=== PATIENT | female | born 1940 | race Caucasian/White ===

== ENCOUNTER → 2020-06-11 09:32 | Outpatient (CLI) | payer MEDICARE, OTHER, SELFPAY ==
[2020-06-11 10:24] LABS: COVID19 -Nasal RAPID Negative (Negative)
== END ==
PROVIDERS: Visit Provider Surgery
DX: Z20.822 Contact with and (suspected) exposure to COVID-19 (principal)
CPT/HCPCS: 87635; C9803

== ENCOUNTER 2020-06-12 09:27 | Day surgery (SDC) | payer MEDICARE, OTHER, SELFPAY ==
[2020-06-12] VITALS (7 sets, daily range): BP systolic 98–150; BP diastolic 54–76; PULSE 60–79; RESP 9–22; TEMP 36.1–37; O2SAT 93–98; BMI 30.9
--- NOTE | 2020-06-12 09:58 | SUR.PREOP ---
Dr. Fallon aware of pt's output with some feces, output in BR clear yellow. Dr. Fallon ok with pt staying for 2 hours post op, eating lunch and then released upstairs to be with hospitalized .
--- NOTE | 2020-06-12 10:05 | PM.HP.1 ---
History of Present Illness History of Present Illness Date Patient Seen: 06/12/20 Time Patient Seen: 10:05 Chief complaint: SDC Narrative: This is an 80-year-old woman with history of colon polyps found on screening colonoscopy 5 years ago. She was recommended to have a repeat colonoscopy in 5 years. She denies any new symptoms of melena, hematochezia, unexplained abdominal pain, unexplained weight loss. She says she is otherwise well. She had a 20 lb intentional weight loss this year. ROS: Thirteen system review is otherwise negative other than as mentioned below and in HPI. PE: GENERAL: Well groomed and cooperative. Appears stated age. Answers questions promptly and appropriately. Vital signs noted. HENT: Normocephalic, atraumatic. Hearing intact. EYES: Conjunctiva pink, sclera white, no periorbital swelling. CARDIOVASCULAR: Regular rate. No pedal edema. RESPIRATORY: Non-tachypneic, breathing comfortably on room air. GASTROINTESTINAL: Abdomen soft and non-distended GENITALURINARY: No flank tenderness. MUSCULOSKELETAL: Equal tone and mass bilaterally. SKIN: Warm, dry, soft, appropriate color for ethnicity. No other lesions, rashes, or wounds. NEURO: Alert and Oriented X 3. No gross sensory deficits, or cognitive issues. PSYCH: Appropriate affect and mood. Meds Home Medications and Allergies Home Medications Medication Instructions Recorded Confirmed Type sodium,potassium,mag sulfates 17.5 177 ml PO DAILY #354 ml 06/04/20 Rx gram-3.13 gram-1.6 gram oral soln furosemide 20 mg PO DAILY 06/12/20 06/12/20 History latanoprost 1 drp EYE-BOTH DAILY 06/12/20 06/12/20 History Allergies Allergy/AdvReac Type Severity Reaction Status Date / Time adaptic dressing marterial AdvReac Intermediate Redness of Uncoded 06/12/20 10:36 Skin Assessment & Plan Assessment and plan (1) Personal history of colonic polyps: Status: Acute Assessment & Plan narrative: Risks and benefits of screening colonoscopy and possible polypectomy were discussed with the patient including risk of bleeding, perforation, need for additional procedures, risks of anesthesia. The patient desires to proceed with the colonoscopy procedure. COVID-19 COVID-19 status: Negative Result date/Date tested (Pos, Neg/Pending): 06/11/20 Time Spent With Patient Time with patient: 15-24 minutes Quality VTE Deep Vein Thrombosis/Pulmonary Embolism Present on Admission: No
[2020-06-12] MEDS: SODIUM CHLORIDE 0.9% 1,000 ML 200 ML IV (10:35)
--- NOTE | 2020-06-12 11:25 | PM.OP.ENDO ---
Operative Date/Time/Diagnoses Date of procedure: 06/12/20 Time of procedure: 11:25 Pre-op diagnosis: Personal history of colon polyps Post-op diagnosis: other (Extensive diverticulosis, no polyps seen on today's exam) Procedure & Clinicians Study performed: Colonoscopy Procedural sedation performed by the endoscopist Same procedure as scheduled: Yes Indications: Personal history of colon polyps Surgeon: Dimple Fallon Procedure Notes SCOAP/Timeout: Performed Procedure in detail: The patient was brought to the room and placed in left lateral decubitus position with all bony prominences padded. A time-out was performed and then the patient was given procedural sedation starting with 2 mg of Versed and 100 mcg of fentanyl. A total of 5 mg of Versed and 200 micro g of fentanyl were given for the entire procedure. Vitals were monitored throughout the procedure and remained stable. Once adequately sedated, the procedure was begun. A rectal exam was performed revealing no abnormalities. The colonoscope was then introduced to the rectum and advanced carefully through the rectum and sigmoid colon. The patient had extensive diverticulosis with many false passages and line turns. Multiple maneuvers were used to traverse the colon safely including using the stiffener, positioned the patient on her back, using anterior pressure on the abdominal wall. We were ultimately able to reach the cecum. Prep was poor, resulting in visibility adequate only to identify polyps greater than 5 mm. Polyp smaller than 5 mm could have easily been missed given the poor prep adherent stool to the arriola of the colon. The cecum was identified by the appendiceal orifice, the mucosal tri-fold, and the ileocecal valve. There was some fresh blood in the cecum, which appeared to be from a small mucosal tears which may be from prolonged insufflation of the colon. No full or partial-thickness tears were seen. The blood was washed off, and the cecum appeared hemostatic. The scope was then retracted while rotating side to side and examining each mucosal fold. There were extensive diverticula throughout the ascending, descending, and sigmoid colon. A few scattered diverticula were also seen in the transverse colon. At the conclusion of the procedure retroflexion was performed and small grade 1-2 internal hemorrhoids without stigmata of bleeding were seen. The scope was then withdrawn from the rectum the procedure was concluded. The patient tolerated the procedure well and was transferred to the PACU in stable condition. Scope withdrawal time: 7 Sedation minutes: 30 Findings: diverticulosis and other findings (Very tortuous colon, extensive diverticulosis, poor prep) Specimen(s): none sent Complications: none (No immediate complication) Impression: Due to the extensive diverticulosis and tortuous colon, this patient should be considered high risk for any future colonoscopy procedures. I would recommend that, if anything, she would have a CT colonography or barium enema in the future rather than a colonoscopy to rule out polyps. No polyps were found on today's exam, but the prep was not adequate to see anything smaller than 5 mm. Therefore, if she is healthy enough at that time, I would consider a CT colonography or barium enema in 5 years.
[2020-06-12] MEDS: fentaNYL 250 MCG/5 ML INJ IV (11:28)
[2020-06-12] MEDS: MIDAZOLAM 5 MG/5 ML VIAL IV (11:28)
--- NOTE | 2020-06-12 13:05 | SUR.PHASEII ---
Per instruction from Dr Fallon, pt is permitted to visit after procedure who is currently admitted to room 213. Dr Fallon requested for pt to have a light lunch prior to being D/C'd to visiting her . Pt will call her ride from husbands room for a ride home.
== END 2020-06-12 13:25 | disposition home or self-care (01) ==
PROVIDERS: PCP Physician Assistant Medical; Referring Provider Surgery; Visit Provider Surgery
PROC: 0DJD8ZZ Inspection of Lower Intestinal Tract, Via Natural or Artificial Opening Endoscopic (ICD-10-PCS; CPT 45378; principal; 2020-06-12 10:45)
DX: Z12.11 Encounter for screening for malignant neoplasm of colon (principal); Z86.010 Personal history of colon polyps; K57.30 Diverticulosis of large intestine without perforation or abscess without bleeding; K64.0 First degree hemorrhoids
CPT/HCPCS: G0105; 99152; 99153; J2250; J3010

== ENCOUNTER → 2021-06-16 11:32 | Outpatient (CLI) | payer MEDICARE, OTHER, SELFPAY ==
[2021-06-16 14:00] LABS: Add Manual Diff / Slide Review NO; Basophils Absolute Auto 0 /uL (0-100); Basophils Percent Auto 0.7 % (0-2); Eosinophils Absolute Auto 100 /uL (0-450); Eosinophils Percent Auto 1.4 % (2-4); Hematocrit 38.9 % (36-46); Hemoglobin 12.7 g/dL (12.0-16.0); Lymphocytes Absolute Auto 1700 /uL (1100-4500); Lymphocytes Percent Auto 26.2 % (25-40); Mean Corpuscular HGB Conc 32.8 % (30-36); Mean Corpuscular Hemoglobin 30.2 PG (26-34); Mean Corpuscular Volume 92.3 fL (80-100); Monocytes Absolute Auto 900 /uL (0-900); Monocytes Percent Auto 13.7 % (3-14); Neutrophils Absolute Auto 3700 /uL (1500-7000); Platelet Count 190 X10^3/uL (150-400); Red Blood Cell Count 4.21 X10^6/uL (4.0-5.2); Red Cell Distribution Width 14.8 % (11.6-14.8); White Blood Cell Count 6.5 X10^3/uL (4.5-11.0)
[2021-06-16 14:05] LABS: Hemoglobin A1C% w Est Avg Glu 5.3 % (4.0-6.0)
[2021-06-16 14:37] LABS: BUN Creatinine Ratio 19.7 (6-22); Blood Urea Nitrogen 15 mg/dL (7-17); Calcium 9.4 mg/dL (8.4-10.2); Carbon Dioxide 32 mmol/L (22-32); Chloride 104 mmol/L (98-107); Estimated Glomerular Filt Rate > 60.0 mL/min (>60); Glucose 90 mg/dL (80-110); HEMOLYSIS < 15 (0-50); Potassium 4.6 mmol/L (3.4-5.1); Sodium 141 mmol/L (137-145)
== END ==
PROVIDERS: PCP Physician Assistant Medical; Referring Provider Orthopaedic Surgery; Visit Provider Orthopaedic Surgery
DX: R73.9 Hyperglycemia, unspecified (principal); Z01.818 Encounter for other preprocedural examination; Z01.812 Encounter for preprocedural laboratory examination
CPT/HCPCS: 36415; 80048; 83036; 85025; 93005; 93010

== ENCOUNTER → 2021-07-13 09:53 | Outpatient (CLI) | payer MEDICARE, OTHER, SELFPAY ==
[2021-07-13 11:00] LABS: COVID19 -Nasal RAPID Negative (Negative)
== END ==
PROVIDERS: PCP Physician Assistant Medical; Visit Provider Family Medicine Sleep Medicine
DX: Z20.822 Contact with and (suspected) exposure to COVID-19 (principal)
CPT/HCPCS: 87635; C9803

== ENCOUNTER 2021-07-16 08:26 | Day surgery (SDC) | payer MEDICARE, OTHER, SELFPAY ==
[2021-07-07 13:59] VITALS: BMI 29.4
[2021-07-16] VITALS (13 sets, daily range): BP systolic 108–157; BP diastolic 34–71; PULSE 67–98; RESP 14–18; TEMP 36.6–37.1; O2SAT 16–100; BMI 29.4
[2021-07-16] MEDS: CELECOXIB 200 MG CAPSULE PO (08:58)
[2021-07-16] MEDS: ACETAMINOPHEN 325 MG TABLET 975 MG PO (08:58)
[2021-07-16] MEDS: PREGABALIN 75 MG CAPSULE PO (08:58)
[2021-07-16] MEDS: LACTATED RINGERS 1,000 ML 42 ML IV (09:10)
--- NOTE | 2021-07-16 09:42 | PM.PREOP ---
Pre-operative Note COVID-19 COVID-19 status: Negative Result date/Date tested (Pos, Neg/Pending): 07/13/21 Interval Note History & Physical reviewed/Exam performed by Physician: Yes Changes to H&P: No
--- NOTE | 2021-07-16 09:54 | P.OP_ITS ---
Operative Date/Time/Diagnoses Date of procedure: 07/16/21 Time of procedure: 11:50 Pre-op diagnosis: Right knee osteoarthritis Post-op diagnosis: same Procedure & Clinicians Procedure: Right total knee replacement Same procedure as scheduled: Yes Indications: The patient has had progressively worsening right knee pain with radiographic changes consistent with arthritis. Non-operative management has failed and the patient has requested total knee replacement. The risks, benefits and alternatives to surgery were discussed with the patient prior to proceeding. Risks discussed included, but were not limited to, failure to relieve pain, stiffness, infection, nerve damage, deep venous thrombosis, pulmonary embolism, stroke, coma, heart attack, permanent paralysis and , as well as the potential need for eventual revision of the prosthetic. Surgeon: Umang Elder Head Worker: Nidhi Cantu Click Yes if Unassisted: No Anesthesia Type: Spinal, Sedation and Local Operative Notes Findings: Severe tricompartmental osteoarthritis worst in the lateral compartment. Soft bone consistent with osteoporosis. Closure Type: primary Specimen(s): none sent Prosthetic devices, grafts, tissues, transplants, or devices: Implants used in this procedure were manufactured by the [employer] and [employer] and included the BCS II Journey total knee replacement with a size 4 right non porous tibial base plate, a size 5 right cobalt chromium femoral component, a 9 mm cross-linked tibial insert and a 32 mm oval Fouzia II patella. Applied: implant(s) Estimated Blood Loss (mL): 25 Blood products transfused: none Tourniquet time (min): 52 Procedure in detail: The patient was seen in the pre-operative area, where the patient identified the right knee as the operative site and this was marked with my initials. The patient received pre-operative antibiotics, and was taken to the operating room and placed on the operative table in the supine position. After satisfactory anesthesia, a multimedia technician out was performed. The right leg was encircled with a tourniquet about the proximal thigh, and the leg was prepared from the toes to the tourniquet with ChloroPrep in the usual fashion and draped through sterile drapes. The leg was elevated and exsanguinated with Eschmark bandage and the tourniquet inflated to 250 mmHg pressure. The knee was approached through an approximately 18 cm incision centered over the patella and carried into the knee through a medial parapatellar arthrotomy. The anterior osteophytes and soft tissues were removed. The rotational landmarks of [place]'s line and the transepicondylar axis were marked on the femur with electrocautery, and intramedullary guide holes for the femur and tibia were crea dennis. The distal femoral cut was made in 6 degrees of valgus using the intramedullary guide at the +2 cut setting due to a flexion contracture. The proximal tibial cut was then made using the intramedullary guide, taking 7mm of bone off the less involved medial side. The extension gap was checked and the rotation of the femoral component confirmed with the gap balancing system. The anterior, posterior and chamfer cuts were then made. The posterior osteophytes and soft tissues were then removed. The posterior capsule was injected with part of a mixture of 60 ml 0.25% Marcaine mixed with 20 ml Exparel and 4 mg of morphine for post-operative pain control. The remainder of this mixture was injected into the capsule and subcutaneous tissues during cement curing. The tibia was prepared with the rotation set by an extra medullary guide. Trial tibial and femoral components were then placed and the intercondylar notch cut through the femoral trial. Range of motion was 0-135 degrees, with good stability throughout the range. The patella was then cut to accommodate the patellar prosthetic. There was no need for a lateral release. The trials were then removed, and the femoral hole plugged with a bone plug. The bone was prepared with pulsatile lavage, and dried with a sponge. Cement was applied and the final prosthetics placed. Excess cement was removed during and after cement curing. After confirming there was no extruded cement posteriorly, the final tibial insert was placed. The knee was copiously irrigated and the tourniquet deflated. Hemostasis was obtained. The capsule was closed with interrupted # 2 polyester suture. The subcutaneous layer was closed with 3-0 Vicryl, and the skin with a running 3-0 V-Lock suture and Dermabond. An Aquacel Ag dressing was applied and the patient was taken to recovery having tolerated the procedure well. Post-operative Condition: stable Disposition: PACU Plan for aftercare: The patient will be maintained on a standard total knee replacement protocol with weight bearing as tolerated. The patient will receive aspirin and sequential compression devices for DVT prophylaxis. The patient will be discharged home when safe for the home environment.
--- NOTE | 2021-07-16 10:00 | DI.RAD.S_ITS ---
PROCEDURE: XR KNEE RT 1TO2V INDICATIONS: TOTAL KNEE TECHNIQUE: 2 view(s) of the knee acquired. [facility]PAR[facility], CR, XR KNEE 4+ VIEWS RIGHT, 05/04/2021, 16:26. FINDINGS: Bones: Patient is status post knee joint arthroplasty. Hardware components are in expected positions. Visualized bony structures are intact. Soft tissues: Overlying postoperative changes are noted. IMPRESSION: No significant abnormality. Dictated by: Jose Juan Tanner M.D. on 07/16/2021 at 12:56 Approved by: Jose Juan Tanner M.D. on 07/16/2021 at 12:57
[2021-07-16] MEDS: CEFAZOLIN 2 GM/20 ML SYRINGE IV (10:33)
[2021-07-16] MEDS: TRANEXAMIC ACID 1,000 MG VIAL 1000 MG INJ ×2 (10:36→11:45)
--- NOTE | 2021-07-16 10:49 | SUR.OPER ---
Supine on padded OR bed. Pillow under head, arms secured on padded armboards <90 degree abduction. Safety belt across torso. Non-operative leg secured with tape over blanket over lower leg. Operative leg secured in [place] positioner. Foam padded brace at thigh of operative leg.
[2021-07-16] MEDS: BUPIVACAINE 0.25% (PF) 60 ML, EPINEPHrine 0.3 MG INJ (10:59)
[2021-07-16] MEDS: MORPHINE 4 MG/ML INJ INJ (11:01)
[2021-07-16] MEDS: BUPIVACAINE LIPOSOME 266 MG/20 ML VIAL INJ (11:30)
--- NOTE | 2021-07-16 12:32 | SUR.PHASEI ---
Attempted to call report to Naima RN and nurse was at lunch and unable to take report. Will attempt again in 15 minutes. Pt denies any complaints and has already had her Xray and something to drink..
[2021-07-16] MEDS: LACTATED RINGERS 1,000 ML 100 ML IV (13:11)
[2021-07-16] MEDS: IBUPROFEN 400 MG TABLET PO ×3 (13:16→21:01)
--- NOTE | 2021-07-16 14:25 | PT.IIE ---
Current Diagnoses Unilateral primary osteoarthritis, right knee (07/16/21) Surgery Performed Operation Date: 07/16/21 10:00 Actual Procedures p Total Knee Arthroplasty(Right) - Umang Elder MD Medical History (Last Reviewed 07/16/21 @ 09:10 by Cosmo Muñoz RN) BCC (basal cell carcinoma) Edema Heart murmur Macular degeneration Peripheral neuropathy UTI (urinary tract infection) Physical Therapy Inpatient Evaluation/Re-Eval M1 PT/OT-IP Prior Functional Status Start: 07/16/21 15:08 Freq: NEEDED Status: Active Protocol: Document 07/16/21 14:25 AB (Rec: 07/16/21 15:18 AB [id number]) Medical Review Prior Functional Status Medical History Reviewed Yes Communication able to make needs known Mobility and Gait pt stated that she is modified independent with all mobilities and ambulation without AD but uses a SPC for long distance/outdoor ambulation Social History Household Members none Living Arrangements House Number of Floors (Floors) One Floor Number of Stairs To Enter/Railing? 1 step to enter Home Environment Standard Height Toilet,Walk in Shower Home Equipment Front Wheel Walker,Straight Cane,Raised Toilet Seat Without Armrests,Shower Seat with Backrest,Hand Held Shower ,Grab Bars In Shower Additional Social History Comment pt plans to go to her daughter 's house upon d/c and daughter will assist her: ~ 1 month and then pt will go back to her house and her son will assist her for 1month M2 PT-IP Current Condition Start: 07/16/21 15:08 Freq: NEEDED Status: Active Protocol: Document 07/16/21 14:25 AB (Rec: 07/16/21 15:18 AB [email or web address]) Physical Therapy Current Condition Current Condition Evaluation Date 07/16/21 Treatment Diagnosis s/p R TKA; difficulty in walking Onset Date 07/16/21 M3 PT-IP Subjective Start: 07/16/21 15:08 Freq: NEEDED Status: Active Protocol: Document 07/16/21 14:25 AB (Rec: 07/16/21 15:18 AB [id number]) Subjective Physical Therapy Visit Type Type Initial Evaluation Visit Start Time 14:25 Visit Stop Time 15:07 Total Visit Minutes 42 Number of PASTE MIXER Visits 0 Physical Therapy Visit Comments Patient Comments agreeable to do PT Therapy Pain Assessment Pain When Pain Assessed At Rest Pain Present Pain Present Pain Reported Location Right Knee Intensity 2 M4 PT-IP Mobility and Gait Start: 07/16/21 15:08 Freq: NEEDED Status: Active Protocol: Document 07/16/21 14:25 AB (Rec: 07/16/21 15:18 AB [email or web address]) PT-Bed Mobility Assessment Supine to Sit Supine to Sit Minimal Assistance Sit to Supine Sit to Supine Minimal Assistance PT-Transfer Assessment Sit to and From Stand Sit to and from Stand Minimal Assistance Equipment Transfer Assistive Device Gait Belt,Front Wheeled Walker Orthotic/Prosthetic Devices or Brace: No Transfers Transfer Destination Bedside Commode Transfer Technique Stand Step Pivot Transfer Ability Level of Assist Minimal Assistance,1 Person Assistance,Use of Upper Extremities Comments Mobility Comments BP: 134/54 pt completed supine to sit min A and cues for techniques. able to sit in bed SBA with cues for positioning. c/o lightheadness. BP: 137/56. stated that her buttocks are still numb and LE has ~ 80% sensation back but able to move BLE AROM. completed sit to stand min A and cues. able to take steps towards HOB. stated that she has to use the toilet. instructed to sit down. positioned bedside commode next to pt. completed sit to stand min A and pt completed step transfer using fWW min A. completed sit to stand from bedside commode min A and step transfer to EOB min A and side stepping to HOB min A. completed sit to supine min A and cues. positioned pt in bed. call light and table placed wtihin reach. Gait Assessment Gait Gait Assistance Required: Minimum Assistance,1 Person Assist Distance (Feet) 2 Able to Maintain Weight Bearing Status Yes During Gait Assistive Devices Assistive Device Gait Belt,Front Wheeled Walker Factors Limiting Gait Function Factors Limiting Gait Function Decreased Activity Tolerance, Decreased Sensation,Decreased Strength,Limited Range of Motion,Pain,Poor Balance,Poor Safety Awareness Comments Gait Comments steps towards HOB PT-Balance Assessment Sitting Balance and Reactions Static Sitting Balance Ability Good Dynamic Sitting Balance Ability Good Standing Balance and Reactions Static Standing Balance Ability Fair Dynamic Standing Balance Ability Fair Device Used FWW M5 PT-IP Objective Assessments Start: 07/16/21 15:08 Freq: NEEDED Status: Active Protocol: Document 07/16/21 14:25 AB (Rec: 07/16/21 15:18 AB [email or web address]) Orientation Orientation/Cognition Level of Alertness Alert Orientation Name,Situation Language Function Ability No Deficits Noted Safety Awareness Understands Safety Issues Memory Description No Deficits Noted Strength Lower Extremity Strength Assessment Right Impaired Hip 4-/5 Knee 3+/5 Coordination Assessment Gross Coordination Gross Coordination WNL Sensation Assessment Sensation Gross Sensation Right LE Impaired,Left LE Impaired Light Touch Impaired Proprioception (Position) Impaired Comments Sensation Comments pt has chronic peripheral neuropathy but also still c/o numbness from surgery Muscle Tone Muscle Tone WNL Yes M6 PT-IP Treatment Start: 07/16/21 15:08 Freq: NEEDED Status: Active Protocol: Document 07/16/21 14:25 AB (Rec: 07/16/21 15:18 AB [id number]) Physical Therapy Treatment Exercises Exercises Heel Slides Education Education Provided Precautions,Weight Bearing Status,Post-Op Packet,Safety M7 PT-IP Assessment and Plan Start: 07/16/21 15:08 Freq: NEEDED Status: Active Protocol: Document 07/16/21 14:25 AB (Rec: 07/16/21 15:18 AB [email or web address]) PT Summary Assessment and Plan Potential Rehabilitation Potential Good Status of Condition at Evaluation Evolving Summary Impairments Pain,ROM,Strength,Balance, Coordination,Sensation,Tone, Cognition,Bed Mobility, Transfers,Gait,Activity Tolerance Assessment Summary pt requiring min A with mobility using FWW. pt s/p R TKA and just had surgery this morning and will likely progress during hospital stay. pt plans to go home and daughter will assist. will conduct caregiver training when appropriate as well as stair climbing training. Goals Bed Mobility Goal Independent Transfer Goal Independent,Front Wheeled Walker Gait Goal Independent,Front Wheel Walker Gait Distance 200 Other Goals up/down 1 steps using FWW SBA Days to Meet Goals 5 Frequency of Treatment Frequency Of Treatment Twice a Day Treatment Plan Physical Therapy Treatment Plan Bed Mobility Training,Transfer Training,Gait Training, Therapeutic Exercise,Balance Retraining,Post Op Education, Discharge Planning,Hot or Cold Pack,Neuromuscular Re-ed, Coordination Retraining,Manual Therapy Weight Bearing Status Weight Bearing Status Weight Bear as Tolerated Allowed Weight Bearing Amount (enter % RLE WBAT or #) (%) Recommendations To Nursing Amount of Assist Needed 1 Person Assist Discharge Recommendations PT Discharge Recommendations Home with Assistance, Outpatient PT Transportation Needs at Discharge Private Vehicle
[2021-07-16] MEDS: ACETAMINOPHEN 325 MG TABLET 650 MG PO ×2 (15:20→21:01)
--- NOTE | 2021-07-16 15:30 | PC.NURSE ---
pt worked with PT, she is min assist to bsc, pt still have some numbness. pt voided 300cc. call light in reach. bed alarm active. PP++, CMS+
[2021-07-16] MEDS: ASPIRIN EC 81 MG TABLET PO (21:02)
[2021-07-16] MEDS: DOCUSATE 100 MG CAPSULE PO (21:02)
[2021-07-17] VITALS: BP 155/70; PULSE 80; RESP 14; TEMP 36.8; O2SAT 95
[2021-07-17 03:50] VITALS: BP 151/66; PULSE 75; RESP 14; TEMP 36.6; O2SAT 97
[2021-07-17] MEDS: IBUPROFEN 400 MG TABLET PO ×3 (04:50→13:21)
[2021-07-17 06:17] LABS: Hematocrit 33.6 % (36-46); Hemoglobin 11.2 g/dL (12.0-16.0)
--- NOTE | 2021-07-17 07:30 | PM.DS.1 ---
History of Present Illness History of Present Illness Date Patient Seen: 07/17/21 Time Patient Seen: 07:30 Chief complaint: *OPB* RT TKA Narrative: The history and physical is contained in the chart previously completed note. Please refer to that note for this information. Discharge Providers Provider Date of admission: July 16, 2021 Discharge Date: 07/17/21 Primary care physician: Anna Tyler PA-C Consults: 07/16/21 12:44 Consult to Discharge Planning Routine Comment: Consult to Physical Therapy Evaluate & Treat Comment: Physician Instructions: postop TKA protocol Discharge provider: Umang Elder MD Summary Hospital Course Discharge Diagnosis: 1. Osteoarthritis of the right knee 2. Post hemorrhagic anemia Hospital Course: The patient was admitted to the hospital and taken directly to the operating on July 16, 2021 where she underwent a right total knee replacement without complications. She was stable on postoperative day 1. She had made several tapes across the room to the bedside commode overnight and it is anticipated she will be able to be discharged to her daughter's home later today. She does have a mild post hemorrhagic anemia which will not require specific treatment. Status at Discharge Cognitive/behavioral status at discharge: at baseline, oriented Functional status at discharge: uses cane/walker Overall status at discharge: patient is progressing back to baseline Time Spent with Patient Time spent: Less than 30 minutes Exam Vital Signs (past 8 hours): - 07/17/21 00:00 07/17/21 03:50 Temperature 98.2 F 97.8 F Pulse Rate 80 75 Respiratory Rate 14 14 Blood Pressure 155/70 H 151/66 H Pulse Oximetry 95 97 Oxygen Delivery Method Room Air Oxygen Flow Rate 0 Narrative Exam Narrative: Right knee wound is dressed with no drainage on the bandage. Calf is soft. Light touch and motion are intact in the right lower extremity. Objective Labs Result Diagrams: 07/17/21 05:59 Labs: Laboratory Results - last 24 hr 07/17/21 05:59 Hgb 11.2 L Hct 33.6 L PFSH Medical History BCC (basal cell carcinoma) Edema Heart murmur Macular degeneration Peripheral neuropathy UTI (urinary tract infection) Surgical History (Updated 07/07/21 @ 14:14 by Nancie Max RN) History of tonsillectomy and adenoidectomy Hx of bilateral cataract extraction Hx of sinus surgery Social History household members: none Smoking Status: Never smoker alcohol intake: current Discharge Assessment & Plan Assessment and Plan Assessment: Stable postoperative day 1 status post right total knee replacement with mild post hemorrhagic anemia. She has been able to ambulate in the room and it is anticipated she will be ready for discharge home later today. Plan of Treatment: Physical therapy this morning. Discharge to her daughter's home. Prescriptions for ox[facility]codone [facility] [place]. Recommendations have been made for Tylenol, ibuprofen and the use of low-dose aspirin for DVT prophylaxis. Follow-up will be at my office in 10-14 days. Discharge Plan Discharge Plan Patient Disposition: Home Discharge orders & Medications Discharge Orders: Discharge (Order); Ordered 07/17/21 Ordered By: Umang Elder Prescriptions: New acetaminophen 325 mg Tablet 650 mg PO TID 30 Days Qty: 180 0RF aspirin 81 mg Tablet,Delayed Release (Dr/Ec) 81 mg PO BID 42 Days Qty: 84 0RF ibuprofen 400 mg Tablet 400 mg PO Q4HR 30 Days 0RF oxycodone 5 mg Tablet 5 mg PO Q4H PRN (Reason: Pain, Moderate (4-6)) Qty: 40 0RF Continued latanoprost 0.005 % drops 1 drp EYE-BOTH DAILY 0RF furosemide 20 mg tablet 20 mg PO DAILY 0RF PreserVision AREDS-2 250-90-40-1 mg Capsule 1 tab PO BID 0RF Discontinued acetaminophen 500 mg Tablet 500 mg PO Q6H PRN (Reason: Pain) 0RF Follow up/Referrals: Umang Elder MD [Physician] - 2 Weeks Anna Tyler PA-C [Primary Care Provider] - Diet/Activity/Treatments Diet: Diet as Tolerated and Regular Activity: You may bear weight as tolerated on your right leg. Cold/Heat Therapy: Apply ice for 15 minutes of every hour as needed to the right knee for pain control. Skin/Wound/Dressing Care Report to your healthcare provider any signs of infection, such as:: chills, fever, night sweats, increased pain, unusual drainage and unusual redness Dressing: You may remove the Dru wrap 3 days after surgery and shower normally with the deeper dressing in place. Leave the deeper dressing in place until your follow up in the office. If the central slip of the dressing becomes saturated with either water or blood, please call the office to have it evaluated. Visit Report/Discharge Packet Instructions: DI for Knee Replacement Stand Alone Forms: Surgery Discharge Discharge Data Primary Care Provider: Anna Tyler Attending Provider: Umang Elder
[2021-07-17 08:29] VITALS: BP 136/64; PULSE 66; RESP 18; TEMP 36.8; O2SAT 99
[2021-07-17] MEDS: DOCUSATE 100 MG CAPSULE PO (09:25)
[2021-07-17] MEDS: ASPIRIN EC 81 MG TABLET PO (09:25)
[2021-07-17] MEDS: ACETAMINOPHEN 325 MG TABLET 650 MG PO (09:25)
[2021-07-17] MEDS: VIT C/E/ZN/COPPR/LUTEIN/ZEAXAN CAPSULE 1 CAP PO (09:25)
--- NOTE | 2021-07-17 11:09 | CM.DANOTE ---
DCP: Case received, EMR reviewed and met with patient. Introduced self and role. Was able to obtain information regarding patient's baseline activity level prior to her surgery, as well as her current living situation. DCP assessment completed with information currently available. Patient is an 81 year old female who admitted yesterday morning to the care of the orthopedic team. PCP: Dr. Anna Tyler. Payer: confirmed: Medicare/[employer]. Patient came to the hospital via private vehicle for a surgical procedure. Patient had right total knee replacement. Patient has history of osteoarthritis of her right knee. Met with patient in her room. She was sitting up in her chair, alert and oriented, pleasant. Patient resides in [place] alone. She is a , her of 61 years last October, he was at [facility]. Patient has a daughter named Swetha Kemp who lives in [place]. She plans on staying with her at her home for a while, then, her son, Shimon, will be helping her at home as well. Patient did indicate that she has a stair lift in her home from when her was was alive, for he had Parkinsons. Patient is independent at her baseline. She is set up with [facility] outpatient P.T. Patient has a single point cane for home use. P: Patient has discharge orders, and will work with P.T. again today before discharge. Thais Herrmann RN/Court Of Appeals Judge Discharge Planning/Care Management CM Discharge Assessment Start: 07/17/21 11:08 Freq: Status: Active Protocol: Document 07/17/21 11:08 (Rec: 07/17/21 11:09 [id number]) Discharge Planning Assessment Assigned Construction Mill[employer] Thais Herrmann RN/Court Of Appeals Judge Advance Directives? Yes Advance Directives on File No History Provided By Patient,Medical Record Prior Living Arrangements House Household Members none Type of transporation used prior to Drives own vehicle admit Independent with ADL's Yes Is patient alert and oriented? Yes DME Already Rented / Owned FWW / Walker,Cane Patient/Family Preference OP PT Therapy Barriers to Discharge No Discharge Plan Home Transportation Arrangement Family Referrals Initiated None needed Whiteboard Updated in Patient Room with Yes name and ext. # of Construction Millwright Review Status In Process Next Review Type Continued Stay Review Pre-Anesthesia Assessment Start: 07/07/21 13:59 Freq: Status: Active Protocol: Document 07/07/21 13:59 CAB (Rec: 07/07/21 14:32 CAB [id number]) Pre-Anesthesia Assessment Patient Information Reviewed Via Phone Assessment Assessment Completed With Patient Diagnostic Results BMP/CMP,CBC,EKG Comment COVID screen @ [facility] 07/13/21 Primary Care Provider Anna Tyler Seen Specialist in Last 12 Months Yes Specialist Seen Orthopedist Primary Language Greek Kier Operator Required No Height 5 ft 3 in Weight 166 lb Body Mass Index (BMI) 29.4 Hearing Ability Normal Visual Assist Glasses Dentition Type Teeth, Natural Present Barriers to Learning None Hx Anesthesia Reactions No Hx Family Anesthesia Reaction No Hx Malignant Hyperthermia No Hx Blood Transfusions No Anesthesia Review Requested No alcohol intake current alcohol intake frequency holidays/special occasions only Smoking Status Never smoker Substance Use Type does not use Pain Present Pain Reported Musculoskeletal Symptoms Abnormal Gait,Difficulty Walking,Joint Pain History of Falling (Recent or History of No ) Patient is completely paralyzed or No completely immobile Prosthesis or Orthotic Device Cane Mental Status Oriented to own ability Is patient on oxygen? No Does patient have SIMPSON/SOB No Hx Sleep Apnea No CPAP/BIPAP use not prescribed Currently Taking a Beta Ronal No Can You Climb a Flight of Stairs Without Yes SOB Hx Chest Pain No Hx SOB No Hx Syncope or Dizziness No Anti-Coagulant Therapy No Has a Therapist'S Assistant No Cardiac Testing No Hx Pacemaker/ICD No Pacemaker Rep Required? 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 Received a COVID vaccine? Yes: No booster Received all doses? No Marital Status /- 6 months ago Lives With spouse,none Prior Living Arrangements House Number of Floors (Floors) Two Floors Support System Child/Children Does the Patient Have Assistance After Yes: Will stay w/daughter at Surgery [facility] for assistance Patient Discharge Plan Description Other Comment Pt not advised on length of stay per surgeon Feels Safe in Current Environment Yes Been Physically Hurt or Threatened By a No Person in Current Environment Do you have thoughts of harming yourself None or others? Are you currently considering suicide? No Do you have a plan to hurt yourself or No Plan others? Do You Have Any Spiritual Beliefs That No May Affect Your HC Choices? Do You Have Any Cultural Practices That No May Affect Your HC Choices? Comment Yazidism Who Can We Speak to About Patient's Care Family, friends Identifying Code for Release of Patient Declines to issue Information Health Care Proxy/Next of Kin Jasmyne (daughter) Health Care Proxy Emergency Contact Name Shimon (son) Emergency Contact Advance Directives? Yes Advance Directives on File No Requested Patient Bring Advanced Yes Directives DOS Power of Painting Department Supervisor No PAC Instructions Do not shave/clip surgical site,Durable medical equipment ,Medications to take/avoid, Nasal antibiotic,No ETOH/ petroleum product on skin DOS, NPO,Post-op transportation,Pre -surgical wash,Sensory aids, Sturdy shoes/comfortable clothes,Do not bring valuables and remove jewelry
--- NOTE | 2021-07-17 11:59 | PT.IPTN ---
Current Diagnoses Unilateral primary osteoarthritis, right knee (07/16/21) Surgery Performed Operation Date: 07/16/21 10:00 Actual Procedures p Total Knee Arthroplasty(Right) - Umang Elder MD Physical Therapy Treatment Note M2 PT-IP Current Condition Start: 07/16/21 15:08 Freq: NEEDED Status: Active Protocol: Document 07/16/21 14:25 AB (Rec: 07/16/21 15:18 AB [id number]) Physical Therapy Current Condition Current Condition Evaluation Date 07/16/21 Treatment Diagnosis s/p R TKA; difficulty in walking Onset Date 07/16/21 M3 PT-IP Subjective Start: 07/16/21 15:08 Freq: NEEDED Status: Active Protocol: Document 07/17/21 11:30 KS (Rec: 07/17/21 12:28 KS [id number]) Subjective Physical Therapy Visit Type Type Treatment Note Visit Start Time 11:30 Visit Stop Time 11:59 Total Visit Minutes 29 Notes Pts son present for caregiver training Number of SECURITIES LENDING TRADER Visits 1 Physical Therapy Visit Comments Patient Comments agreeable to do PT M4 PT-IP Mobility and Gait Start: 07/16/21 15:08 Freq: NEEDED Status: Active Protocol: Document 07/17/21 11:30 KS (Rec: 07/17/21 12:28 KS [id number]) PT-Bed Mobility Assessment Supine to Sit Supine to Sit Standby Assistance Sit to Supine Sit to Supine Standby Assistance Scooting Scooting to Edge of Bed Standby Assistance Scooting Up and Down in Bed Standby Assistance PT-Transfer Assessment Sit to and From Stand Sit to and from Stand Contact Guard Assistance Equipment Transfer Assistive Device Gait Belt,Front Wheeled Walker Orthotic/Prosthetic Devices or Brace: No Transfers Transfer Destination Bed Transfer Technique Pt ambulated w/ FWW Transfer Ability Level of Assist Standby Assistance,Contact Guard Assistance,1 Person Assistance,Use of Upper Extremities Comments Mobility Comments Pt in bed w/ son in room upon arrival from therapy. SBA for sup<>sit and scooting EOB. Demonstrated gaitbelt application to pts son who is former EMT and familiar w/ gaitbelt. Pt sit<>stand w/ FWW CGA and cues for hand placement. Denied dizziness or lghtheadedness. She then ambulated ~20 ft w/ FWW CGA to platform step in hallway and ascended/descended platform step w/ FWW CGA twice, first w / this SECURITIES LENDING TRADER and second w/ her son. Pts son was able to provide appropriate assist and cues for leg sequencing. Pt then ambulated additional 60 ft w/ FWW CGA by son w/ cues for quad activation, heel toe walking, and equal step length . Pt returned to bed SBA and left in bed w/ all needs in reach. Gait Assessment Gait Gait Assistance Required: Standby Assistance,Contact Guard Assist,1 Person Assist Distance (Feet) 80 Able to Maintain Weight Bearing Status Yes During Gait Assistive Devices Assistive Device Gait Belt,Front Wheeled Walker Gait Deviations General Gait Pattern Decreased Stride Length, Decreased Feet Clearance Factors Limiting Gait Function Factors Limiting Gait Function Decreased Activity Tolerance, Decreased Sensation,Decreased Strength,Limited Range of Motion,Pain,Poor Balance,Poor Safety Awareness Comments Gait Comments Pt increased gait distance to ~80 ft w/ FWW w/ SBA to CGA which her son was able to provide. Min cues for quad activation, heel toe walking, and equal step length. Stair Climbing Assessment Evaluation Level of Assist On Stairs Contact Guard Assistance,1 Person Assistance Devices Stair Climbing Assistive Devices Front Wheel Walker Technique/Endurance Stair Climbing Direction Ascend and Descend Stair Climbing Technique Step to Step Number of Steps Climbed 1 Stair Climbing Set # Repetitions (reps) 2 Comments Stair Climbing Comments Pt ascended/descended platform step x2 w/ FWW and CGA and cues provided first b this SECURITIES LENDING TRADER and then by her son. Pt required min cues for sequencing. Pt and son state they feel safe to complete step going into home. PT-Balance Assessment Sitting Balance and Reactions Static Sitting Balance Ability Good Dynamic Sitting Balance Ability Good Standing Balance and Reactions Static Standing Balance Ability Good Dynamic Standing Balance Ability Fair Device Used FWW M5 PT-IP Objective Assessments Start: 07/16/21 15:08 Freq: NEEDED Status: Active Protocol: Document 07/16/21 14:25 AB (Rec: 07/16/21 15:18 AB [id number]) Orientation Orientation/Cognition Level of Alertness Alert Orientation Name,Situation Language Function Ability No Deficits Noted Safety Awareness Understands Safety Issues Memory Description No Deficits Noted Strength Lower Extremity Strength Assessment Right Impaired Hip 4-/5 Knee 3+/5 Coordination Assessment Gross Coordination Gross Coordination WNL Sensation Assessment Sensation Gross Sensation Right LE Impaired,Left LE Impaired Light Touch Impaired Proprioception (Position) Impaired Comments Sensation Comments pt has chronic peripheral neuropathy but also still c/o numbness from surgery Muscle Tone Muscle Tone WNL Yes M6 PT-IP Treatment Start: 07/16/21 15:08 Freq: NEEDED Status: Active Protocol: Document 07/17/21 11:30 KS (Rec: 07/17/21 12:28 KS [id number]) Physical Therapy Treatment Exercises Exercises Ankle Pumps,Quad Sets Education Education Provided Precautions,Weight Bearing Status,Post-Op Packet,Safety Other Treatments Other Treatment Performed Completed caregiver training w / pts son. M7 PT-IP Assessment and Plan Start: 07/16/21 15:08 Freq: NEEDED Status: Active Protocol: Document 07/17/21 11:30 KS (Rec: 07/17/21 12:28 KS [id number]) PT Summary Assessment and Plan Potential Rehabilitation Potential Good Status of Condition at Evaluation Evolving Summary Impairments Pain,ROM,Strength,Balance, Coordination,Sensation,Tone, Cognition,Bed Mobility, Transfers,Gait,Activity Tolerance Progress Towards Goals Progressing Toward Goals Assessment Summary Pt SBA to CGA throughout treatment today. SBA for bed mobility, CGA for transfers, ambulation, and stair training w/ FWW. Able to ambulate 80 ft and ascend/descend platform step twice w/ FWW. Pts son was able to provide appropriate assist and cues. Pt feels safe to d/c home w/ family support. She will benefit from outpatient rehab to improve strength, gait, and ROM. Goals Bed Mobility Goal Independent Transfer Goal Independent,Front Wheeled Walker Gait Goal Independent,Front Wheel Walker Gait Distance 200 Other Goals up/down 1 steps using FWW SBA Days to Meet Goals 5 Frequency of Treatment Frequency Of Treatment Twice a Day Treatment Plan Physical Therapy Treatment Plan Bed Mobility Training,Transfer Training,Gait Training, Therapeutic Exercise,Balance Retraining,Post Op Education, Discharge Planning,Hot or Cold Pack,Neuromuscular Re-ed, Coordination Retraining,Manual Therapy Weight Bearing Status Weight Bearing Status Weight Bear as Tolerated Allowed Weight Bearing Amount (enter % RLE WBAT or #) (%) Recommendations To Nursing Amount of Assist Needed 1 Person Assist Discharge Recommendations PT Discharge Recommendations Home with Assistance, Outpatient PT Transportation Needs at Discharge Private Vehicle
--- NOTE | 2021-07-17 12:51 | PC.NURSE ---
Pt Awake, denies discomfort. Worked w/PT & is cleared for D/C SL discontinued w/o incidence. Dsg to right knee CDI. Discharge instructions given by Cassie WONG w/understanding Awaiting ride.
[2021-07-17] MEDS: OXYCODONE IR 5 MG TABLET PO (13:24)
--- NOTE | 2021-07-17 13:46 | PC.NURSE ---
Discharged by provider. Cleared by P.T. Pt verbalized understanding of all written and verbal d/c instructions. Pt states scripts are at pharmacy ready to pick-up. IV removed. Pt dressed. Pt left in stable condition with all personal belongings. Escorted out to private vehicle via w/c.
== END 2021-07-17 14:40 | disposition home or self-care (01) ==
LOC: OR 08:29 → AC 08:29
PROVIDERS: PCP Physician Assistant Medical; Referring Provider Orthopaedic Surgery; Visit Provider Orthopaedic Surgery
PROC: 0SRC0JZ Replacement of Right Knee Joint with Synthetic Substitute, Open Approach (ICD-10-PCS; CPT 27447; principal; 2021-07-16 10:00)
DX: M17.11 Unilateral primary osteoarthritis, right knee (principal); G62.9 Polyneuropathy, unspecified; I10 Essential (primary) hypertension; D50.0 Iron deficiency anemia secondary to blood loss (chronic)
CPT/HCPCS: 27447; 36415; 73560; 85014; 85018; 97116; 97162; 97530; C1776; C1713; C9290; J0171; J0690; J1100; J2270; J2405; J2704

== ENCOUNTER → 2023-12-22 12:03 | Outpatient (CLI) | payer MEDICARE, OTHER, SELFPAY ==
[2021-07-16 13:00] VITALS: BMI 29.4
== END ==
PROVIDERS: PCP Physician Assistant Medical; Visit Provider Urology
DX: R39.9 Unspecified symptoms and signs involving the genitourinary system (principal)
CPT/HCPCS: 87086

== ENCOUNTER → 2023-12-27 13:29 | Outpatient (CLI) | payer MEDICARE, OTHER, SELFPAY ==
[2021-07-16 13:00] VITALS: BMI 29.4
[2023-12-27 13:55] LABS: Add Manual Diff / Slide Review NO; Basophils Absolute Auto 100 /uL (0-100); Basophils Percent Auto 0.6 % (0-2); Eosinophils Absolute Auto 100 /uL (0-450); Eosinophils Percent Auto 1.3 % (2-4); Hemoglobin 13.4 g/dL (12.0-16.0); Lymphocytes Absolute Auto 1600 /uL (1100-4500); Lymphocytes Percent Auto 17.3 % (25-40); Mean Corpuscular HGB Conc 33.6 % (30-36); Mean Corpuscular Volume 92.3 fL (80-100); Monocytes Absolute Auto 1000 /uL (0-900); Monocytes Percent Auto 11.3 % (3-14); Neutrophils Absolute Auto 6300 /uL (1500-7000); Neutrophils Percent Auto 69.5 % (50-75); Platelet Count 292 X10^3/uL (150-400); Red Blood Cell Count 4.33 X10^6/uL (4.0-5.2); Red Cell Distribution Width 13.4 % (11.6-14.8); White Blood Cell Count 9.1 X10^3/uL (4.5-11.0)
--- NOTE | 2023-12-27 13:57 | EKG_ITS ---
[address] [address] Test Date: 2023-12-27 Pat Name: Claudia Heredia Department: [facility] Room: Gender: Female Commercial Real Estate Broker: KALYN : 1940 Requested By: Order Number: [id number] Reading MD: Pratik Mccann Measurements Intervals [place] Rate: 95 P: 74 CO: 124 QRS: 43 QRSD: 68 T: 49 QT: 346 QTc: 434 Interpretive Statements Normal sinus rhythm Electronically Signed On 12-29-2023 19:50:15 PDT by Pratik Mccann
[2023-12-27 14:44] LABS: BUN Creatinine Ratio 22.7 (6-22); Blood Urea Nitrogen 20 mg/dL (7-17); Calcium 9.6 mg/dL (8.4-10.2); Carbon Dioxide 33 mmol/L (22-32); Chloride 101 mmol/L (98-107); Estimated Glomerular Filt Rate > 60 mL/min (>60); Glucose 105 mg/dL (80-110); HEMOLYSIS < 15 (0-50); Potassium 4.4 mmol/L (3.4-5.1); Sodium 139 mmol/L (137-145)
[2023-12-27 14:53] LABS: Prealbumin 14.9 mg/dL (17.6-36.0)
[2023-12-27 15:06] LABS: Hemoglobin A1C% w Est Avg Glu 5.2 % (4.0-6.0)
== END ==
PROVIDERS: PCP Physician Assistant Medical; Referring Provider Orthopaedic Surgery Adult Reconstructive Orthopaedic Surgery; Visit Provider Orthopaedic Surgery Adult Reconstructive Orthopaedic Surgery
DX: Z01.818 Encounter for other preprocedural examination (principal); E55.9 Vitamin D deficiency, unspecified; R73.9 Hyperglycemia, unspecified; R77.0 Abnormality of albumin; Z01.812 Encounter for preprocedural laboratory examination
CPT/HCPCS: 36415; 80048; 82040; 82306; 83036; 84134; 85025; 93005

== ENCOUNTER 2024-03-23 11:18 | Day surgery (SDC) | payer MEDICARE, OTHER, SELFPAY ==
[2021-07-16 13:00] VITALS: BMI 29.4
[2024-03-14 08:28] VITALS: BMI 25.7
--- NOTE | 2024-03-23 07:25 | DI.RAD.S_ITS ---
PROCEDURE: XR KNEE LT 1TO2V INDICATIONS: TKA TECHNIQUE: 2 views of the knee were acquired. COMPARISON: [facility], CR, XR KNEE 4+ VIEWS LEFT, 12/22/2023, 16:57. [facility], JOVANY, XR KNEE RT 1TO2V, 07/16/2021, 12:18. [facility], CR, XR KNEE 4+ VIEWS RIGHT, 08/24/2021, 14:37. FINDINGS: Bones: Left knee arthroplasty in expected position. Soft tissues: Postsurgical changes IMPRESSION: Postsurgical changes of left knee arthroplasty. Dictated by: Claudy Bauman M.D. on 03/23/2024 at 17:14 Approved by: Claudy Bauman M.D. on 03/23/2024 at 17:15
[2024-03-23 12:31] VITALS: BP 146/68; PULSE 78; RESP 16; TEMP 36.8; O2SAT 98; BMI 25.7
[2024-03-23] MEDS: ACETAMINOPHEN 325 MG TABLET 975 MG PO (12:48)
[2024-03-23] MEDS: MELOXICAM 7.5 MG TABLET 15 MG PO (12:48)
[2024-03-23] MEDS: LACTATED RINGERS 1,000 ML 84 ML IV ×2 (12:50→15:04)
--- NOTE | 2024-03-23 13:49 | PM.PREOP ---
Pre-operative Note Interval Note History & Physical reviewed/Exam performed by Physician: Yes Changes to H&P: No
[2024-03-23] MEDS: CEFAZOLIN 2 GM/100 ML PREMIX 100 ML IV ×2 (14:30→23:49)
--- NOTE | 2024-03-23 14:50 | SUR.OPER ---
Supine on padded OR bed. Pillow under head, arms secured on padded armboards <90 degree abduction. Safety belt across torso. Non-operative leg secured with tape over blanket over lower leg. Operative leg secured in [place]. Foam padded brace at thigh of operative leg.
[2024-03-23] MEDS: ROPIVACAINE/EPI/CLONIDINE/KET 50 ML SYRINGE INJ (14:58)
[2024-03-23] MEDS: TRANEXAMIC ACID 1,000 MG VIAL 1000 MG INJ ×2 (14:59→16:10)
[2024-03-23 16:49] VITALS: BP 105/61; PULSE 95; RESP 17; TEMP 36.1; O2SAT 96
--- NOTE | 2024-03-23 16:52 | P.OP_ITS ---
Operative Date/Time/Diagnoses Date of procedure: 03/23/24 Pre-op diagnosis: Left knee osteoarthritis Post-op diagnosis: same Procedure & Clinicians Procedure: Left total knee arthroplasty Same procedure as scheduled: Yes Surgeon: Jae Thapa Operational Meteorologist: Rebecca Randall Anesthesia Type: Spinal, Sedation, Peripheral nerve block and Local Operative Notes Estimated Blood Loss (mL): 150 Procedure in detail: Left Gap-Balanced Zaheer Persona Medial-Congruent Primary Total Knee Arthroplasty Implants: * Size 7 narrow Cruciate Retaining Femoral Component * Size E Tibial Component with 14 x 30 stem extension * Size 10 Medial Congruent Polyethylene Insert * Unresurfaced Patella Procedure Summary: This 84-year-old female patient had valgus arthritis and her extension gap balanced without the need for soft tissue releases. Her femoral rotation balanced at 9? external rotation. Her bone quality was very poor and when I trialed with a floating tibial base plate trial and actually dog into the anterior tibia. I had enough of a rim of cortical bone remaining to get a flat interface between the tibial base plate in the resected tibia however given the depression of the central bone I wanted to provide some additional stability so I used a Stubby stem extension. Procedure in Detail: This patient was seen preoperatively and evaluated for knee pain which was r efractory to numerous nonoperative treatment modalities. Their pain correlated with radiographic changes demonstrating significant degeneration in the knee joint. The risks and benefits of continued nonoperative management versus operative management were discussed at length and all of the patient?s questions were answered. Additional educational materials providing further details beyond our discussion in clinic were provided via a publicly available patient education video which included the incidence of medical complications associated with total knee arthroplasty, reasons for revision following total knee arthroplasty, and patient satisfaction rates following total knee arthroplasty. That video can be accessed at [email or web address] . With this understanding of the risks inherent to the procedure, the patient elected to move forward with operative management. Following preoperative optimization, the patient was scheduled for surgery. The patient was met in the preoperative holding area the day of the procedure and all questions were answered. The patient?s nares were swabbed with betadine in order to decolonize them from MRSA. Informed consent was signed and the left limb was marked with indelible ink.? The patient was brought back to the operating room where anesthesia was induced. The patient was transferred to the operating table and all bony prominences were padded. The operative site was prepped and draped in the usual sterile fashion. A second prep stick was utilized following drape placement. The incision was marked corresponding to the medial aspect of the tibial tubercle and the patella. Ioban was wrapped circumferentially around the knee. Prior to incision, tranexamic acid and cefazolin were administered. Templating images were displayed. A timeout procedure was performed verifying the patient?s identity, medical comorbidities, allergies, relevant medications, anesthesia type and the surgical plan. All present were in agreement. The assistance of a physician legal support assistant was required for positioning, room setup, soft tissue retraction and wound closure. Without this assistance, the procedure would have been significantly more challenging and time consuming.?? The tourniquet was inflated prior to incision. I made an anterior incision over the knee, dissected through the subcutaneous tissues and identified the lateral border of the VMO. Medial and lateral soft tissue flaps were developed. A medial parapatellar arthrotomy was performed ensuring that adequate capsular tissue would remain for closure at the conclusion of the procedure. The hip was brought into extension and the medial soft tissues were released off the joint line of the tibia. Tissue overlying the distal anterior femur was released to allow for later assessment for anterior notching but left in place. A portion of the retropatellar fat pad was excised while protecting the patellar tendon. The patella was everted. The patella was not resurfaced. Osteophytes were excised and a lateral facetectomy was performed. The patella was released from its everted position.?? I flexed the knee to 90 degrees and placed retractors to allow access to the notch. An opening reamer was used to gain access to the femoral canal and an intramedullary wade was introduced into the canal. Diaphyseal fit was obtained in order to allow a distal femoral resection at 5 degrees relative to the anatomic axis, thereby aiming to achieve mechanical alignment of the eventual implant. A +2 resection was planned and assessed using an rosina wing. I then made the cut using a sagittal saw. This provided additional access to the femoral notch. The ACL and PCL were excised. Retractors were placed on the lateral and medial tibia. I hyperflexed the knee while externally rotating it to sublux the tibia anteriorly. I placed a PCL retractor posteriorly and used this to provide additional anterior subluxation. The remainder of the PCL root was released. An intramedullary reamer was used in the ACL footprint to provide access to the tibial canal. An extramedullary guide was positioned to allow a resection perpendicular to the anatomic and mechanical axes of the tibia, thereby aiming to achieve mechanical alignment of the eventual implant. A +4 resection off the medial tibia was planned and the tibial cutting jig was pinned in place. I evaluated the cut depth, varus-valgus alignment and slope of the planned tibial resection and deemed them satisfactory. I cut the tibia with a sagittal saw while using retractors to protect the MCL, patellar tendon, and posterolateral structures.? The knee was repositioned in extension and the Fuzion soft tissue balancing gauge was introduced. This demonstrated that there was equal tension in the medial and lateral compartments of the knee with the knee in full extension and no additional soft tissue releases were necessary. When 60 pounds of force was applied to the Fuzion device, the extension gap opened to 10 mm. I moved the knee into 90 degrees of flexion, and the Fuzion device was recalibrated by removing a 9 mm sudhir to allow assessment of the flexion gap. The Fuzion was placed perpendicular to the resected surface of the tibia and the resected surface of the distal femur. Sixty pounds of traction was applied to match the tension of the extension gap. This externally rotated the femur to 9 degrees. Pins were placed in the 10 mm holes. The measured resection guide was placed over the pins to allow sizing. Appropriate sizing was determined and a 4-in-1 b lock was placed. This was double checked using the Fuzion device to ensure that it would open to an equal distance as the extension gap when the same amount of force was applied. The Fuzion block was also used to assess flexion gap symmetry. An rosina wing was used to ensure there would be no anterior notching. Retractors were placed to protect the soft tissues during resection. Captured cuts were performed with a sagittal saw for the anterior and posterior femur as well as the corresponding chamfers.? Trial components were placed and the construct was assessed. Range of motion was assessed by ensuring the knee could achieve full extension and assessing maximum passive knee flexion by elevating the femur and allowing the heel to passively fall towards the buttock. Gap symmetry was assessed by stressing the medial and lateral compartments in both extension and flexion. Laxity was assessed in both extension and flexion and the polyethylene trial was adjusted with shims as necessary. Patellar tracking was assessed with knee flexion. Once satisfied with the construct, I moved forward with implant insertion. Lug holes were drilled in the femur and the tibia was prepped ensuring appropriate sizing and rotation relative to the tibial tubercle.?? The bony ends were irrigated and cement was prepared. Portions of the anterior chamfer cut were utilized as cement restrictors in the femur and tibia where intramedullar rods had been utilized. Cement was placed on the entirety of the undersurface of both the tibial and femoral components. Cement was placed onto the dry tibia and pressurized into the cancellous bone. I impacted the tibial component into place. Cement was removed. The tibia was reduced underneath the femur and placed cement onto the dry surface of the resected femur. I placed the femoral component as well as the intended polyethylene trial. Cement was removed from around the femur. I brought the knee into extension and manually pressurized the construct by pushing on the heel while the cement dried. The knee was bathed in a dilute mixture of betadine and peroxide. A mixture of Ropivacaine, Epinephrine, Clonidine and Toradol was infiltrated throughout the soft tissues into structures including the VMO, patellar tendon, quadriceps tendon, MCL and femoral periosteum. A low adductor canal block was also performed using this mixture unless one had been placed preoperatively by anesthesia. The knee was copiously irrigated with pulse lavage. Once cement had been allowed to dry the knee was again trialed. Range of motion was assessed by ensuring the knee could achieve full extension and assessing maximum passive knee flexion by elevating the femur and allowing the heel to passively fall towards the buttock. Gap symmetry was assessed by stressing the medial and lateral compartments in both extension and flexion. Laxity was assessed in both extension and flexion and the polyethylene trial was adjusted with shims as necessary. Patellar tracking was assessed with knee flexion. The tourniquet was let down and the polyethylene trial was removed. I inspected the knee inspected for excess cement and any residual bleeding. Once hemostasis was achieved I in serted the final polyethylene and ensured appropriate engagement of the dovetail locking mechanism.?? The arthrotomy was closed with absorbable interrupted suture ensuring that this extended to the top of the arthrotomy. This was backed up with running barbed suture throughout the arthrotomy. The skin was closed with 2-0 and 3-0 sutures. Surgical glue was applied and a soft dressing was placed.?The sponge, instrument and needle counts were reported as being correct at the end of the case.??No obvious complications occurred. The patient was transferred from the operating table back to a stretcher. The patient emerged from anesthesia without difficulty and was taken to the PACU in a stable condition.? Plan for aftercare: * Weightbearing as tolerated * Mobilization as soon as the patient has recovered from anesthesia. If physical therapists are unavailable at the time the patient is ready to ambulate, then nursing staff should help patient ambulate * Aspirin 81 twice per day for DVT prophylaxis * Cefadroxil 500 mg twice per day for periprosthetic joint infection prophylaxis given the patient's significant lower extremity edema at baseline * Dru wraps to be applied to the operative limb for edema prophylaxis for the 1st month postoperatively * Multimodal pain regimen with no IV opioids ordered * Anticipate discharge home later today * Follow up at [facility] in 2 weeks * Detailed postoperative instructions available at [email or web address]
[2024-03-23 16:54] VITALS: BP 122/60; PULSE 94; RESP 14; O2SAT 97
[2024-03-23 16:59] VITALS: BP 105/61; PULSE 96; RESP 14; O2SAT 95
[2024-03-23 17:28] VITALS: BMI 25.7
[2024-03-23 17:40] VITALS: BP 140/62; PULSE 89; RESP 18; TEMP 36.2; O2SAT 92
[2024-03-23] MEDS: ACETAMINOPHEN 325 MG TABLET 650 MG PO ×2 (17:49→23:49)
[2024-03-23] MEDS: IBUPROFEN 400 MG TABLET PO ×2 (17:50→23:50)
[2024-03-23] MEDS: OXYCODONE IR 5 MG TABLET PO (17:50)
[2024-03-23] MEDS: LACTATED RINGERS 1,000 ML 100 ML IV (17:52)
--- NOTE | 2024-03-23 18:05 | PC.NURSE ---
Addendum entered by Norma Parker R.N. 03/23/24 18:07: She is awake Oriented x4. VSS, afebrile, on RA. ALONSO wrap c/d/i. +1 edema to L ankle. Patient states baseline neuropathy feet tingle. She states sensation to BLE's baseline, and is able to wiggle her toes. She tolerates dinner well. Denies n/v. She is due to void approximately 1999 (Last void about noon today). Admission assessment completed, LR IVF at 100 ml/hr, Bed alarm on, call light in reach, POSTOP VS, continuous pulse ox, encouarged q 2 turning, and IS use. SCD to RLE. Continuous monitoring. Original Note: Patient arrived from PACU at 1720
[2024-03-23 20:00] VITALS: BP 131/67; PULSE 78; RESP 12; TEMP 35.7; O2SAT 97
[2024-03-23] MEDS: TRAMADOL 50 MG TABLET PO (20:41)
[2024-03-23] MEDS: DOCUSATE 100 MG CAPSULE PO (20:41)
[2024-03-23] MEDS: ASPIRIN EC 81 MG TABLET PO (20:41)
[2024-03-24 04:00] VITALS: BP 137/61; PULSE 78; RESP 14; TEMP 35.9; O2SAT 97
[2024-03-24 04:59] LABS: Hematocrit 32.6 % (36-46); Hemoglobin 10.9 g/dL (12.0-16.0)
[2024-03-24] MEDS: ACETAMINOPHEN 325 MG TABLET 650 MG PO ×2 (06:03→11:44)
[2024-03-24] MEDS: IBUPROFEN 400 MG TABLET PO ×2 (06:03→11:44)
[2024-03-24] MEDS: CEFAZOLIN 2 GM/100 ML PREMIX 100 ML IV (06:04)
--- NOTE | 2024-03-24 08:39 | PC.NURSE ---
Addendum entered by Armando Finney R.N. 03/24/24 15:13: Discharge instructions given to Pt and son, IV d/c'd intact. Dru wrap to surgical site intact. Using walker to transfer to w/c. Escorted to son/s car via w/c by Reginald SKELTON. Original Note: Pt a&o, pleasant. Conversant and engaged. Taking B'fast presently Surgical leg dressing CDI.
--- NOTE | 2024-03-24 09:07 | P.DS_ITS ---
History of Present Illness History of Present Illness Date Patient Seen: 03/24/24 Time Patient Seen: 09:07 Chief complaint: Left Total Knee Arthroplasty Narrative: Operative Date/Time/Diagnoses Date of procedure: 03/23/24 Pre-op diagnosis: Left knee osteoarthritis Post-op diagnosis: same Procedure & Clinicians Procedure: Left total knee arthroplasty Same procedure as scheduled: Yes Surgeon: Jae Thapa Computer Forensics Technician: Rebecca Randall Anesthesia Type: Spinal, Sedation, Peripheral nerve block and Local Operative Notes Estimated Blood Loss (mL): 150 Procedure in detail: Left Gap-Balanced Zaheer Persona Medial-Congruent Primary Total Knee Arthroplasty Implants: * Size 7 narrow Cruciate Retaining Femoral Component * Size E Tibial Component with 14 x 30 stem extension * Size 10 Medial Congruent Polyethylene Insert * Unresurfaced Patella Discharge Providers Provider Discharge Date: 03/24/24 Primary care physician: Anna Tyler PA-C Consults: 03/23/24 07:25 Consult to Anesthesiology Routine Comment: Consulting Provider: Anesthesiologist Reason for consultation: Regional block for post operative pain control Has provider been notified: No 03/23/24 17:23 Consult to Discharge Planning Routine Comment: Consult to Physical Therapy Evaluate & Treat Comment: Physician Instructions: postop TKA protocol Discharge provider: Rebecca Randall PA-C Summary Hospital Course Discharge Diagnosis: Left knee osteoarthritis s/p left total knee arthroplasty Hospital Course: Ms Heredia's hospital course was unremarkable. On the morning of POD# 1, she was feeling well. She was eating and voiding without difficulty and her pain was well-controlled with oral medication. She had not yet worked w/ PT or otherwise been OOB. Her plan for discharge is to go home with her daughter, who has a one-level house. Exam Vital Signs (past 8 hours): - 03/24/24 04:00 Temperature 96.7 F L Pulse Rate 78 Respiratory Rate 14 Blood Pressure 137/61 Pulse Oximetry 97 Oxygen Flow Rate 0 Oxygen Delivery Method Room Air Oxygen Flow Rate 0 Narrative Exam Narrative: 5/5 strength in hip flexors, 4/5 quadriceps, hamstrings, 5/5 PF, DF, EHL on left. Sensation to light touch intact througout LLE. Calf firm; no pitting edema, no pain to palpation, no lymphorrhea. Urine from Purewick is clear and light yellow. Objective Labs 03/24/24 04:15 Labs: Laboratory Results - last 24 hr 03/24/24 04:15 Hgb 10.9 L Hct 32.6 L PFSH Medical History (Updated 03/14/24 @ 09:17 by Nancie Max RN) History of COVID-19 (~2019) Vertigo Neuropathy Osteopenia UTI (urinary tract infection) BCC (basal cell carcinoma) Heart murmur Edema Macular degeneration Peripheral neuropathy Surgical History (Updated 03/14/24 @ 08:31 by Nancie Max RN) History of total right knee replacement (07/16/21) History of tonsillectomy and adenoidectomy Hx of sinus surgery Hx of bilateral cataract extraction Family History Aunt Cancer Mother Eczema Hypertension Social History marital status: household members: none occupational status: previously employed leisure activities: exercise Smoking Status: Never smoker alcohol intake: never caffeine: No Discharge Assessment & Plan Assessment and Plan Assessment: Left knee osteoarthritis s/p left total knee arthroplasty Plan of Treatment: Discharge home after PT if pt feeling confident in movement. Multimodal pain control, ASA BID for VTE prophylaxis, outpt PT, f/u in office as scheduled. She has a h/o LE edema and I explained we will discharge her with antibiotics for 7 days in the event she develops lymphorrhea, which would make her more susceptible to infection. Discharge Plan Discharge Plan Patient Disposition: Home Discharge orders & Medications Discharge Orders: Discharge (Order); Ordered 03/24/24 Ordered By: Rebecca Randall Prescriptions: New cefadroxil 500 mg capsule 500 mg PO BID Qty: 14 0RF Continued latanoprost 0.005 % drops 1 drp EYE-BOTH DAILY furosemide 20 mg tablet 20 mg PO DAILY acetaminophen 500 mg Capsule 1,000 mg PO DAILY PRN (Reason: Pain) PreserVision AREDS-2 250-90-40-1 mg Capsule 1 tab PO BID Follow up/Referrals: Jae Thapa MD [Physician] - 04/05/24 2:30 pm (Follow up w/ Rebecca Randall PA-C, at [facility] in [place]) Anna Tyler PA-C [Primary Care Provider] - Diet/Activity/Treatments Diet: Diet as Tolerated Activity: Weightbearing as tolerated. Walk frequently! Cold/Heat Therapy: Ice to knee as needed for pain. Skin/Wound/Dressing Care Report to your healthcare provider any signs of infection, such as:: chills, fever, night sweats, unusual drainage and unusual redness Dressing: May remove ALONSO wrap and cotton padding and shower on 03/25/2024. Leave Aquacel bandage in place until follow up in office. No bathing or otherwise soaking incision. Call the office if the bandage becomes saturated inside. Visit Report/Discharge Packet Instructions: DI for Knee Replacement, DI for Prescription Opioid Use Stand Alone Forms: Patient Portal/API, Surgery Discharge Discharge Data Primary Care Provider: Anna Tyler Attending Provider: Jae Thapa
[2024-03-24] MEDS: FUROSEMIDE 20 MG TABLET PO (09:50)
[2024-03-24] MEDS: ASPIRIN EC 81 MG TABLET PO (09:50)
[2024-03-24] MEDS: VIT C/E/ZN/COPPR/LUTEIN/ZEAXAN CAPSULE 1 CAP PO (09:50)
[2024-03-24] MEDS: DOCUSATE 100 MG CAPSULE PO (09:51)
[2024-03-24] MEDS: LATANOPROST 0.005% OPHTH 2.5 ML 1 DROPS EYE-BOTH (09:51)
--- NOTE | 2024-03-24 09:56 | PT.IIE ---
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) Hx of bilateral cataract extraction Hx of sinus surgery Medical History (Last Updated 03/14/24 @ 09:17 by Nancie Max RN) BCC (basal cell carcinoma) Edema Heart murmur History of COVID-19 (~2019) Macular degeneration Neuropathy Osteopenia Peripheral neuropathy UTI (urinary tract infection) Vertigo Physical Therapy Inpatient Evaluation/Re-Eval M1 PT/OT-IP Prior Functional Status Start: 03/24/24 12:55 Freq: NEEDED Status: Active Protocol: Document 03/24/24 09:56 AB (Rec: 03/24/24 13:07 AB [id number]) Medical Review Prior Functional Status Medical History Reviewed Yes Communication able to make needs known Mobility and Gait pt stated that she was independent with all mobilities and ambulation using a SPC indoors, FWW for outdoor mobilities but uses a 4WW for long distance outdoor mobility Social History Household Members none Living Arrangements House Number of Floors (Floors) One Floor Number of Stairs To Enter/Railing? pt plans to go to her daughter 's house upon d/c: info provided is regarding pt's house no steps to enter Home Environment Standard Height Toilet,Walk in Shower Home Equipment Front Wheel Walker,Four Wheel Walker,Straight Cane,Raised Toilet Seat w/Armrests,Shower Seat with Backrest,Hand Held Shower,Leg Roller [place] M2 PT-IP Current Condition Start: 03/24/24 12:55 Freq: NEEDED Status: Active Protocol: Document 03/24/24 09:56 AB (Rec: 03/24/24 13:07 AB [id number]) Physical Therapy Current Condition Current Condition Evaluation Date 03/24/24 Treatment Diagnosis s/p L TKA; difficulty in walking Onset Date 03/23/24 M3 PT-IP Subjective Start: 03/24/24 12:55 Freq: NEEDED Status: Active Protocol: Document 03/24/24 09:56 AB (Rec: 03/24/24 13:07 AB [id number]) Subjective Physical Therapy Visit Type Type Initial Evaluation Visit Start Time 09:56 Visit Stop Time 11:15 Number of DAY CAMP UNIT LEADER Visits 0 Physical Therapy Visit Comments Patient Comments agreeable to do PT Therapy Pain Assessment Pain When Pain Assessed During Mobility Location Left Knee Intensity 8 Scale Used Numeric (0 - 10) Pain Management Techniques Apply Cold,Distraction, Elevation,Modification of Treatment,Re-positioning, Timing of Activity with Medications M4 PT-IP Mobility and Gait Start: 03/24/24 12:55 Freq: NEEDED Status: Active Protocol: Document 03/24/24 09:56 AB (Rec: 03/24/24 13:07 AB [id number]) PT-Bed Mobility Assessment Supine to Sit Supine to Sit Standby Assistance PT-Transfer Assessment Sit to and From Stand Sit to and from Stand Contact Guard Assistance, Minimal Assistance,1 Person Assistance,Use of Upper Extremities Equipment Transfer Assistive Device Gait Belt,Front Wheeled Walker Orthotic/Prosthetic Devices or Brace: No Transfers Transfer Destination Chair Transfer Technique ambulated Transfer Ability Level of Assist Contact Guard Assistance,1 Person Assistance,Use of Upper Extremities Comments Mobility Comments pt supine in bed and agreeable to do PT. obtained PLOF and home set up. post-op folder provided and reviewed contents . BP: 141/65. completed supine to sit SBA. cued for techniques. pt able to sit on EOB SBA. no c/o dizziness/ lightheadedness. sit to stand min A and max cues for tehnciques. ambulated ~ 20 ft using FWW CGA. c/o lightheadedness. pt sat on the chair. BP checked: 123/63. pt rested. BP checked again: 125/61. pt agreed to walk again. completed sit to stand CGA and ambulated in room using FWW CGA ~ 35 ft. pt sat back on chair. positioned pt on the chair. call light and table placed within reach. pt wanting to do caregiver training and will inform her son to come in at 130pm this afternoon for training Gait Assessment Gait Gait Assistance Required: Contact Guard Assist Distance (Feet) 35 Able to Maintain Weight Bearing Status Yes During Gait Assistive Devices Assistive Device Gait Belt,Front Wheeled Walker Orthotic/Prosthetic Devices or Brace: No Gait Deviations General Gait Pattern Decreased Stride Length, Decreased Feet Clearance Factors Limiting Gait Function Factors Limiting Gait Function Decreased Activity Tolerance, Decreased Strength,Difficulty Following Directions,Limited Range of Motion,Pain,Poor Balance,Poor Safety Awareness PT-Balance Assessment Sitting Balance and Reactions Static Sitting Balance Ability Normal Dynamic Sitting Balance Ability Good Standing Balance and Reactions Static Standing Balance Ability Good Dynamic Standing Balance Ability Fair Device Used FWW M5 PT-IP Objective Assessments Start: 03/24/24 12:55 Freq: NEEDED Status: Active Protocol: Document 03/24/24 09:56 AB (Rec: 03/24/24 13:07 AB [id number]) Orientation Orientation/Cognition Level of Alertness Alert Orientation Name,Place,Situation Language Function Ability No Deficits Noted Safety Awareness Decreased Safety Awareness Memory Description No Deficits Noted Gross Range of Motion Lower Extremity ROM Impairments L knee flexion: ~ 50 deg L knee extension: ~ 25 deg less to 0 Strength Lower Extremity Strength Assessment Left Impaired Hip 3+/5 Knee 3+/5 Muscle Tone Muscle Tone WNL Yes M6 PT-IP Treatment Start: 03/24/24 12:55 Freq: NEEDED Status: Active Protocol: Document 03/24/24 09:56 AB (Rec: 03/24/24 13:07 AB [id number]) Physical Therapy Treatment Exercises Exercises Heel Slides Education Education Provided Precautions,Weight Bearing Status,Post-Op Packet,Safety M7 PT-IP Assessment and Plan Start: 03/24/24 12:55 Freq: NEEDED Status: Active Protocol: Document 03/24/24 09:56 AB (Rec: 03/24/24 13:07 AB [id number]) PT Summary Assessment and Plan Potential Rehabilitation Potential Fair Status of Condition at Evaluation Evolving Summary Impairments Pain,ROM,Strength,Balance, Coordination,Sensation,Tone, Cognition,Bed Mobility, Transfers,Gait,Activity Tolerance Assessment Summary pt is an 84 y/o F s/p L TKA POD 1. pt is WBAT on LLE. pt requiring CGA to min A with mobility using FWW. caregiver training set up at 130pm today . will continue to assess. Goals Bed Mobility Goal Independent Transfer Goal Independent,Front Wheeled Walker Gait Goal Independent,Front Wheel Walker Gait Distance 200 Days to Meet Goals 5 Frequency of Treatment Frequency Of Treatment Twice a Day Treatment Plan Physical Therapy Treatment Plan Bed Mobility Training,Transfer Training,Gait Training, Therapeutic Exercise,Balance Retraining,Post Op Education, Discharge Planning,Hot or Cold Pack,Neuromuscular Re-ed, Coordination Retraining,Manual Therapy Weight Bearing Status Weight Bearing Status Weight Bear as Tolerated Allowed Weight Bearing Amount (enter % LLE WBAT or #) (%) Recommendations To Nursing Amount of Assist Needed 1 Person Assist Discharge Recommendations PT Discharge Recommendations Home with Assistance, Outpatient PT Transportation Needs at Discharge Private Vehicle
--- NOTE | 2024-03-24 10:43 | CM.DANOTE ---
Addendum entered by CARLOS Layton 03/24/24 12:47: ADD: SW spoke to PT and confirms that pt was able to participate in eval and only slight dizziness which resolved and plan is 1330 CG training today with family bedside and then likely discharge home with family assist. No concerns at this time. BF Original Note: Patient is an 84 yo female who was admitted on 03/23/24 for LTKA. Pt has [facility] and [employer] for insurance and her PCP is Anna Tyler. EMR was reviewed. Per Ortho PA, pt tolerated procedure well and voiding and tolerated diet and to work with PT to confirm if safe for d/c home today and pt having some visual disturbances and may be related to anesthesia or medications. PT ordered and pending. SW met bedside with pt and explained role and pt confirms she lives at home in a split level house alone in [place] and is active and independent at baseline. Pt has FWW, 4WW, raised toilet seat, bath bench from prior surgery ready for use. Pt denies any hx of HH or SNF and states she is from her of 61 yrs and he a couple years ago and was in the [place] for 31 yrs. Pt has 4 adult children and her son in [place] and her Dtr in [place] are her POA's. Pt confirms her preference is to d/c to her Dtr's house in [place] for assist at d/c and her son will provide transport there at d/c. Pt does not anticipate any further needs at discharge at this time. Plan: SW to follow for PT eval and recommendations to confirm safe d/c home with family assist and any further identified discharge planning needs. CARLOS Layton Discharge Planning/Care Management CM Discharge Assessment Start: 03/24/24 10:41 Freq: Status: Active Protocol: Document 03/24/24 10:42 BF (Rec: 03/24/24 10:43 BF [id number]) Discharge Planning Assessment Assigned Box Spring Maker CARLOS Brennan DPOA/Assigned Designee Name Dtr in [place] and son in [place] Advance Directives? Yes Advance Directives on File No History Provided By Patient,Medical Record Has Patient been admitted in last 30 No days? Prior Living Arrangements House Household Members none Type of transporation used prior to Drives own vehicle admit Independent with ADL's Yes Is patient alert and oriented? Yes Needs Assistance With Home Chores / Shopping Caregiver for Another No DME Already Rented / Owned Bath Bench,Elevated Toilet Seat,FWW / Walker Patient/Family Preference OP PT Therapy Barriers to Discharge No Discharge Plan Home Community Services Physical Therapy Transportation Arrangement Son in [place] will transport her to Dtr's in [place] Referrals Initiated None needed Additional Comment Pending PT eval today Whiteboard Updated in Patient Room with Yes name and ext. # of Box Spring Maker Review Status In Process Please Provide Date Initial DC 03/24/24 Assessment Was Performed Next Review Type Continued Stay Review Pre-Anesthesia Assessment Start: 03/14/24 08:28 Freq: Status: Active Protocol: Document 03/14/24 08:28 CAB (Rec: 03/14/24 09:25 CAB [id number]) Pre-Anesthesia Assessment PAC Comment Phone assess Patient Information Reviewed Via Phone Assessment Diagnostic Results BMP/CMP,CBC,EKG,Urinalysis Comment Labs/EKG @ 12/27/23 Primary Care Provider Anna Tylre Comment Clearance form 01/06/24 scanned and in surgery folder Seen Specialist in Last 12 Months Yes Specialist Seen Orthopedist,Urologist Primary Language Czech Preferred Language Czech Hotel Recreational Facilities Manager Required No Height 160.02 cm Weight 65.771 kg Body Mass Index (BMI) 25.7 Hearing Ability Normal Visual Assist Glasses Dentition Type Teeth, Natural Present Barriers to Learning None Hx Anesthesia Reactions No Hx Family Anesthesia Reaction No Hx Malignant Hyperthermia No Hx Blood Transfusions No Hx Blood Transfusion Reaction No Anesthesia Review Requested No Maintenance Advisor No alcohol intake current alcohol intake frequency holidays/special occasions only Smoking Status Never smoker Substance Use Type does not use Pain Present Pain Reported Musculoskeletal Symptoms Abnormal Gait,Difficulty Walking,Joint Pain History of Falling (Recent or History of Yes ) Comment 8 months ago Patient is completely paralyzed or No completely immobile Prosthesis or Orthotic Device Cane,Front Wheel Walker Mental Status Oriented to own ability Is patient on oxygen? No Does patient have SIMPSON/SOB No Hx Sleep Apnea No CPAP/BIPAP use not prescribed Currently Taking a Beta Ronal No Can You Climb a Flight of Stairs Without Yes SOB Hx Chest Pain No Hx SOB No Hx Syncope or Dizziness No Anti-Coagulant Therapy No Has a Candlemaker No Cardiac Testing No Hx Pacemaker/ICD No Pacemaker Rep Required? No Cardiac Clearance Received Not Applicable Diet Type At Home Regular Dysphagia No Gastrointestinal Symptoms None Bladder Pattern Incontinent Urinary Catheter Present No Hx Urinary Self Catheterization No Diabetes No HgbA1C 5.2 Date 12/27/23 Patient No Lactating No Hx Drug Resistant Organism No Presence of External or Internal Medical Yes: Bilat eye IOLs, right Devices knee Received a COVID vaccine? Yes: No booster Comment No covid symptoms x 2 months Marital Status / Lives With none Current Living Arrangements House Number of Floors (Floors) Two Floors Support System Child/Children Does the Patient Have Assistance After Yes Surgery Patient Discharge Plan Description Other Additional comment Will stay w/daughter at [place] for assistance Feels Safe in Current Environment Yes Been Physically Hurt or Threatened By a No Person in Current Environment Do you have thoughts of harming yourself None or others? Are you currently considering suicide? No Do you have a plan to hurt yourself or No Plan others? Do You Have Any Spiritual Beliefs That No May Affect Your HC Choices? Do You Have Any Cultural Practices That No May Affect Your HC Choices? Comment Yarsani Who Can We Speak to About Patient's Care Family, friends Identifying Code for Release of Patient Declines to issue Information Health Care Proxy/Next of Kin Jasmyne (daughter) Health Care Proxy Emergency Contact Name Shimon (son) Emergency Contact Advance Directives? Yes Advance Directives on File No Requested Patient Bring Advanced Yes Directives DOS Power of Tree Expert No PAC Instructions Assistance for 24 hours post- op,Do not shave/clip surgical site,Durable medical equipment ,Medications to take/avoid, Nasal antibiotic,No ETOH/ petroleum product on skin DOS, NPO,Pre-op antibiotic,Pre- surgical wash,Sturdy shoes/ comfortable clothes,Do not bring valuables and remove jewelry
[2024-03-24 11:55] VITALS: BP 133/75; PULSE 88; RESP 14; TEMP 36.6; O2SAT 100
--- NOTE | 2024-03-24 13:30 | PT.IPTN ---
Current Diagnoses Unilateral primary osteoarthritis, left knee (03/23/24) Surgery Performed Operation Date: 03/23/24 13:45 Actual Procedures p Total Knee Arthroplasty(Left) - Jae Thapa MD Physical Therapy Treatment Note M2 PT-IP Current Condition Start: 03/24/24 12:55 Freq: NEEDED Status: Active Protocol: Document 03/24/24 09:56 AB (Rec: 03/24/24 13:07 AB [id number]) Physical Therapy Current Condition Current Condition Evaluation Date 03/24/24 Treatment Diagnosis s/p L TKA; difficulty in walking Onset Date 03/23/24 M3 PT-IP Subjective Start: 03/24/24 12:55 Freq: NEEDED Status: Active Protocol: Document 03/24/24 13:30 AB (Rec: 03/24/24 14:41 AB [id number]) Subjective Physical Therapy Visit Type Type Treatment Note Visit Start Time 13:30 Visit Stop Time 14:00 Number of CLINICAL PSYCHOLOGIST Visits 0 M4 PT-IP Mobility and Gait Start: 03/24/24 12:55 Freq: NEEDED Status: Active Protocol: Document 03/24/24 13:30 AB (Rec: 03/24/24 14:41 AB [id number]) PT-Transfer Assessment Sit to and From Stand Sit to and from Stand Minimal Assistance,Moderate Assistance,1 Person Assistance ,Use of Upper Extremities Equipment Transfer Assistive Device Gait Belt,Front Wheeled Walker Orthotic/Prosthetic Devices or Brace: No Comments Mobility Comments pt sitting on the chair and son in room for caregiver training. BP: 117/56 . caregiver training conducted. educated son on how to use safety belt and how to assist pt. son was able to put safty belt on pt. pt completed sit to stand min to mod A with son assisting. pt ambulated in room using FWW ~ 60 ft CGA. son was able to assist pt with ambulation. pt sat back on chair. pt refused bed mobility traiing. PT educated pt and son with bed mobility techniques. positioned pt on the chair. call light and table placed within reach. pt and son without further concerns. informed nurse Gait Assessment Gait Gait Assistance Required: Contact Guard Assist Distance (Feet) 60 Able to Maintain Weight Bearing Status Yes During Gait Assistive Devices Assistive Device Gait Belt,Front Wheeled Walker Orthotic/Prosthetic Devices or Brace: No Gait Deviations General Gait Pattern Decreased Stride Length, Decreased Feet Clearance,Step- to Gait Factors Limiting Gait Function Factors Limiting Gait Function Decreased Activity Tolerance, Decreased Strength,Difficulty Following Directions,Limited Range of Motion,Pain,Poor Balance,Poor Safety Awareness M5 PT-IP Objective Assessments Start: 03/24/24 12:55 Freq: NEEDED Status: Active Protocol: Document 03/24/24 09:56 AB (Rec: 03/24/24 13:07 AB [id number]) Orientation Orientation/Cognition Level of Alertness Alert Orientation Name,Place,Situation Language Function Ability No Deficits Noted Safety Awareness Decreased Safety Awareness Memory Description No Deficits Noted Gross Range of Motion Lower Extremity ROM Impairments L knee flexion: ~ 50 deg L knee extension: ~ 25 deg less to 0 Strength Lower Extremity Strength Assessment Left Impaired Hip 3+/5 Knee 3+/5 Muscle Tone Muscle Tone WNL Yes M6 PT-IP Treatment Start: 03/24/24 12:55 Freq: NEEDED Status: Active Protocol: Document 03/24/24 13:30 AB (Rec: 03/24/24 14:41 AB [id number]) Physical Therapy Treatment Education Education Provided Safety M7 PT-IP Assessment and Plan Start: 03/24/24 12:55 Freq: NEEDED Status: Active Protocol: Document 03/24/24 13:30 AB (Rec: 03/24/24 14:41 AB [id number]) PT Summary Assessment and Plan Potential Rehabilitation Potential Good Summary Impairments Pain,ROM,Strength,Balance, Coordination,Sensation,Tone, Cognition,Bed Mobility, Transfers,Gait,Activity Tolerance Assessment Summary caregiver training conducted. Pt's son was able to safely assist pt with mobility. pt may go home when medically stable. Goals Bed Mobility Goal Independent Transfer Goal Independent,Front Wheeled Walker Gait Goal Independent,Front Wheel Walker Gait Distance 200 Days to Meet Goals 5 Frequency of Treatment Frequency Of Treatment Twice a Day Treatment Plan Physical Therapy Treatment Plan Bed Mobility Training,Transfer Training,Gait Training, Therapeutic Exercise,Balance Retraining,Post Op Education, Discharge Planning,Hot or Cold Pack,Neuromuscular Re-ed, Coordination Retraining,Manual Therapy Weight Bearing Status Weight Bearing Status Weight Bear as Tolerated Allowed Weight Bearing Amount (enter % LLE WBAT or #) (%) Recommendations To Nursing Amount of Assist Needed 1 Person Assist Discharge Recommendations PT Discharge Recommendations Home with Assistance, Outpatient PT Transportation Needs at Discharge Private Vehicle
== END 2024-03-24 15:00 | disposition home or self-care (01) ==
LOC: OR 11:22 → AC 11:23
PROVIDERS: PCP Physician Assistant Medical; Referring Provider Orthopaedic Surgery Adult Reconstructive Orthopaedic Surgery; Visit Provider Orthopaedic Surgery Adult Reconstructive Orthopaedic Surgery
PROC: 0SRD0JZ Replacement of Left Knee Joint with Synthetic Substitute, Open Approach (ICD-10-PCS; CPT 27447; principal; 2024-03-23 13:45)
DX: G89.18 Other acute postprocedural pain (principal); M17.12 Unilateral primary osteoarthritis, left knee; M25.762 Osteophyte, left knee
CPT/HCPCS: 27447; 36415; 64447; 73560; 85014; 85018; 97116; 97161; 97530; C1776; J0690; J1100; J2405; J2704; J3010